=== PATIENT | female | born 2000 | race Caucasian/White ===

== ENCOUNTER 2024-02-12 18:08 | Emergency (ER) | payer OTHER ==
[~2024-02-12] VITALS: Ht 162.6 cm; Wt 58.6 kg
[2024-02-12] MEDS: NS 1,000 ML IV ONE (18:35)
[2024-02-12 18:44] LABS: BASO % 0.4 % (0.0-1.0); EOS # 0.1 10^3/uL (0.0-0.5); EOS % 0.7 % (0.0-3.0); HEMATOCRIT 42.6 % (36.0-47.0); HEMOGLOBIN 13.8 g/dl (12.0-15.5); LYMPH # 3.8 10^3/uL (1.5-5.0); LYMPH % 34.9 % (24.0-44.0); MEAN CORPUSCULAR HEMOGLOBIN 28.9 pg (27.0-33.0); MEAN CORPUSCULAR HGB CONC 32.4 g/dl (32.0-36.5); MEAN CORPUSCULAR VOLUME 89.3 fl (80.0-96.0); MONO # 0.8 10^3/uL (0.0-0.8); MONO % 7.1 % (2.0-8.0); NEUTROPHILS # 6.1 10^3/uL (1.5-8.5); NEUTROPHILS % 56.7 % (36.0-66.0); PLATELET COUNT, AUTOMATED 286 10^3/uL (150-450); RED BLOOD COUNT 4.77 10^6/uL (4.00-5.40); WHITE BLOOD COUNT 10.8 10^3/uL (4.0-10.0)
[2024-02-12 19:10] LABS: ALBUMIN 4.8 G/DL (3.2-5.2); ALKALINE PHOSPHATASE 57 U/L (46-116); ALT/SGPT 14 U/L (7.0-40); AST/SGOT 13 U/L (<34); BILIRUBIN,DIRECT 0.1 MG/DL (<0.4); BILIRUBIN,TOTAL 0.4 MG/DL (0.3-1.2); BLOOD UREA NITROGEN 12 MG/DL (9-23); CALCIUM LEVEL 9.3 MG/DL (8.5-10.1); CARBON DIOXIDE LEVEL 22 MMOL/L (20-31); CHLORIDE LEVEL 106 MMOL/L (98-107); CK-MB VALUE MASS < 1.0 NG/ML (<3.6); CREATININE FOR GFR 0.68 MG/DL (0.55-1.30); GLOMERULAR FILTRATION RATE > 60.0 (>60); GLUCOSE, FASTING 103 MG/DL (60-100); MAGNESIUM LEVEL 1.8 MG/DL (1.8-2.4); POTASSIUM SERUM 3.4 MMOL/L (3.5-5.1); SODIUM LEVEL 140 MMOL/L (136-145); TOTAL PROTEIN 8.1 G/DL (5.7-8.2)
[2024-02-12 19:11] LABS: LIPASE 32 U/L (12-53)
[2024-02-12 19:12] LABS: CPK CREATINE PHOSPHOKINASE 99 U/L (34-145); FREE T4 1.18 NG/DL (0.89-1.76); MB/CK RELATIVE INDEX 1.01 (< OR =4); THYROID STIMULATING HORMONE 2.014 uIU/ML (0.55-4.78)
[2024-02-12 19:15] VITALS: TEMP 97.8
[2024-02-12 19:19] LABS: HCG, SERUM QUALITATIVE NEGATIVE (NEGATIVE)
[2024-02-12 20:00] VITALS: BP 110/63; O2SAT 98
[2024-02-12] MEDS ORDERED: DIGO0.253 PO (20:07)
== END 2024-02-12 20:41 | disposition home or self-care (01) ==
LOC: M ED 18:08
DX: I47.10 Supraventricular tachycardia, unspecified (principal); I51.7 Cardiomegaly; I45.10 Unspecified right bundle-branch block; Z79.899 Other long term (current) drug therapy